=== PATIENT | male | born 1935 | race Caucasian/White ===

== ENCOUNTER → 2017-05-03 | Outpatient (CLI) | payer MEDICARE ==
[~2017-05-03] MED LIST: AQUAPHOR BABY HEA41% TP; ASPIRIN 81MG TA81 MG PO; DOXAZOSIN 4MG TA4 MG PO; HYDROCORT 1% CR30 GM TP; K-DUR 2020 MEQ PO; KCL 10% 2020 MEQ/15 NG; KLOR-CON M2020 ME1 PO; LEVOTHYROXINE0.05 MG PO; LISINOPRIL HCTZ1 TAB PO; OMEPRAZOLE40 MG PO; PERCOCET 5/3251 EACH PO; PHENERGAN12.5 M3 PO; PRAVASTATIN 40M40 MG PO; TAMSULOSIN HYD0.4 MG PO; VITAMIN B COMPL1 CAP PO; VITAMIN D1000 IU PO; ZOLPIDEM 10MG T10 MG PO
[2017-05-03 09:36] LABS: LYMPH # 1.1 K/mm3 (0.7-4.5); LYMPH % 23.9 % (10-50)
[2017-05-03 09:40] LABS: BUN 22 mg/dL (7-18); GFR (ESTIMATED) 64 ML/MIN (>60)
[2017-05-03 09:42] LABS: HEMOGLOBIN 10.6 g/dL (14.1-18.0)
--- NOTE | 2017-05-03 15:54 | RADIOLOGY REPORT PS360 ---
CT CHEST W/ CONTRAST INDICATION: Follow-up: Cancer, pulmonary nodule follow-up [facility] ORDERING PHYSICIAN: Josr Jackson MD PATIENT AGE: 81 years COMPARISON: 11/15/2016 TECHNIQUE: Axial images are obtained with contrast. Sagittal and coronal reformatted images are reviewed as well. FINDINGS: There is severe thoracic kyphosis along with levoscoliosis and ankylosis of the thoracic spine. There is elongation of the thoracic aortic arch. Severe coronary artery calcification noted. No mediastinal or hilar mass. Previously noted 8 mm nodule in the right lower lobe anteriorly now measures 10 mm. Atelectatic changes are present in the right lung base and have slightly increased in the interval. There is a 4 mm nodule in the left lower lobe superior segment which is developed in the interval. Small pleural-based nodule also noted in the major fissure on the left at 3 mm. There are 2 new nodules measuring 3 and 4 mm within the left upper lobe anteriorly and a new 5 mm nodule in the left upper lobe posteriorly and medially adjacent to an area of proptosis. An additional 3 mm nodules present just superior to this. 3 mm nodules present in the left lung base adjacent to the hemidiaphragm and there is a 4 mm nodule in the left lower lobe laterally with an additional 3 mm nodule just superior to this. There is trace right pleural effusion. No change severe kyphoscoliosis. IMPRESSION: 1. Multiple small bilateral pulmonary nodules some of which are new and some which have increased in size consistent with pulmonary metastasis. 2. Severe kyphoscoliosis with trace right-sided pleural effusion. 3. Coronary artery disease IMPRESSION:
--- NOTE | 2017-05-03 16:05 | RADIOLOGY REPORT PS360 ---
CT ABD PELVIS W/ CONTRAST CLINICAL INDICATION: Follow-up: Cancer, follow-up liver lesion [facility] ORDERING PHYSICIAN: Josr Jackson MD PATIENT AGE: 81 years COMPARISON: 11/15/2016 TECHNIQUE: Axial images obtained with sagittal and coronal reformats. PROCEDURE: Oral Contrast: Redicat IV Contrast: 75 mL [id number] performed in conjunction with the chest CT. FINDINGS: There is a heterogeneous area within the medial segment left hepatic lobe which measures 7.8 x 5.5 cm consistent with neoplasm previously measuring 5.1 cm. This lesion is less well delineated but has increased in size. The spleen and adrenal glands are unremarkable. There is diffuse fatty infiltration of the pancreas. There is intra and extrahepatic biliary dilatation as before. Contracted gallbladder with cholelithiasis. Multiple bilateral renal cysts are noted. No renal mass or hydronephrosis. A moderate amount retained colonic feces. There is an umbilical hernia as well as a right periumbilical hernia both containing small bowel without obvious obstruction. A left lateral abdominal wall hernia is also noted containing small bowel. This is in the left lower quadrant No acute bony anomalies. IMPRESSION: 1. Enlarging left lobe hepatic mass consistent with metastatic disease. 2. Cholelithiasis with intra and hepatic biliary dilatation unchanged. 3. Umbilical and right periumbilical hernia containing bowel, left lower quadrant abdominal wall hernia also noted containing bowel
== END ==
LOC: RAD 09:22
PROVIDERS: Internal Medicine
DX: Z03.89 Encounter for observation for other suspected diseases and conditions ruled out (principal); C18.9 Malignant neoplasm of colon, unspecified
CPT/HCPCS: Q9967

== ENCOUNTER → 2017-07-05 | Outpatient (CLI) | payer MEDICARE ==
[2017-07-05] VITALS (15 sets, daily range): BP systolic 145–161; BP diastolic 54–82
[~2017-07-05] VITALS: Ht 170.2 cm; Wt 68.5 kg
[2017-07-05 09:22] LABS: HEMOGLOBIN 10.7 g/dL (14.1-18.0); LYMPH % 18.2 % (10-50)
[2017-07-05 09:32] LABS: BUN 23 mg/dL (7-18); GFR (ESTIMATED) 58 ML/MIN (>60)
[2017-07-05 10:27] LABS: URINE BILIRUBIN - DIPSTICK NEGATIVE (NEG); URINE BLOOD NEGATIVE (NEG)
[2017-07-05 10:45] LABS: URINE SQUAMOUS CELLS OCC #/hpf (OCC)
== END ==
LOC: COP 09:05
PROVIDERS: Internal Medicine
DX: C18.9 Malignant neoplasm of colon, unspecified (principal); C78.7 Secondary malignant neoplasm of liver and intrahepatic bile duct
CPT/HCPCS: J9035; J9206; Q0166

== ENCOUNTER 2017-08-14 09:20 | Outpatient (CLI) | payer MEDICARE ==
[2017-08-14] VITALS (7 sets, daily range): BP systolic 159–179; BP diastolic 67–82
[~2017-08-14] VITALS: Ht 170.2 cm; Wt 68.5 kg
[2017-08-14 09:51] LABS: URINE BILIRUBIN - DIPSTICK NEGATIVE (NEG); URINE BLOOD NEGATIVE (NEG)
[2017-08-14 09:53] LABS: HEMOGLOBIN 10.5 g/dL (14.1-18.0); LYMPH # 0.8 K/mm3 (0.7-4.5)
[2017-08-14 10:05] LABS: URINE SQUAMOUS CELLS OCC #/hpf (OCC)
[2017-08-14 10:32] LABS: GFR (ESTIMATED) 64 ML/MIN (>60)
[2017-08-14 10:36] LABS: BUN 24 mg/dL (7-18)
== END 2017-08-14 13:55 | disposition home or self-care (01) ==
LOC: COP 09:20
PROVIDERS: Internal Medicine
DX: C18.9 Malignant neoplasm of colon, unspecified (principal); C78.7 Secondary malignant neoplasm of liver and intrahepatic bile duct
CPT/HCPCS: J9035; J9206; Q0166